=== PATIENT | male | born 1960 | race Caucasian/White ===

== ENCOUNTER 2019-05-30 09:38 | Inpatient (IN) ==
[2019-05-30] MEDS ORDERED: ASPIRIN PO ONE ×2 (10:20→10:22)
[2019-05-30] MEDS ORDERED: NITROGLYCERIN TOP ONE (10:22)
[2019-05-30 10:32] LABS: BASO# 0.04 X1000 (0.0-0.2); BASO% 0.5 % (0.0-0.8); EOS# 0.17 X1000 (0.0-0.7); EOS% 2.2 % (0.0-10.0); HEMATOCRIT 42.9 % (42.0-52.0); HEMOGLOBIN 15.1 g/dL (14.0-18.0); IMM GRAN# 0.02 X1000 (0.0-0.04); IMM GRAN% 0.3 % (0.0-0.5); LYMPH# 3.04 X1000 (1.2-3.4); LYMPH% 38.9 % (20.5-51.1); MCH 30.9 PG (27-31); MCHC 35.2 g/dL (33-37); MCV 87.9 FL (81-99); MONO# 0.63 X1000 (0.11-0.59); MONO% 8.1 % (1.7-9.3); MPV 9.7 FL (7.4-10.4); NEUT# 3.92 X1000 (1.4-6.5); PLT 263 X1000 (130-400); RBC 4.88 XMIL (4.7-6.1); WBC 7.82 X1000 (4.8-10.8)
--- NOTE | 2019-05-30 10:42 | PROVIDER DOCUMENTATION ---
This chart was entered by Nyla Chaeny Scribe, acting as scribe for Jose Hampton MD. HPI-Chest Pain - General Chief Complaint: Chest Pain Stated Complaint: CP,BACK PAIN,SWEATING Time Seen by Provider: 05/30/19 10:08 Source: patient, family, old records Allergies/Adverse Reactions: Patient Allergies Allergy/AdvReac Type Severity Reaction Status Date / Time No Known Allergies Allergy Verified 05/30/19 03:07 Home Medications: Home Medication List Medication Instructions Recorded Confirmed Last Taken Type ATORVAstatin [Lipitor] 20 mg PO QHS 05/30/19 05/30/19 Unknown History Ketorolac [Toradol] 10 mg PO Q6H PRN PRN #20 tab 05/30/19 05/30/19 Unknown Rx Orphenadrine [Norflex] 100 mg PO BID PRN #20 tab 05/30/19 05/30/19 Unknown Rx Valsartan [Diovan] 160 mg PO QAM 05/30/19 05/30/19 Unknown History - History of Present Illness-CP Nature of Presenting Problem: 59 y/o male presents to ED with L sided chest pain that radiates to back, diaphoresis, and SOB onset this morning. Pt reports he was seen last night for same, but his pain was worse this morning. Pt states he had a stress test on 05/28/19. Pt reports his pain is better now, but was unbearable this morning. Pt states he has had similar, less intense episodes of chest pain over the past 2 weeks. Pt is alert and oriented. Location: reports: other (L sided) Chest Pain Radiation: reports: back Quality of Pain: reports: pressure, sharp Severity in ED: severe Onset/Duration: this morning Timing: still present, improving Context/Activities at Onset: reports: none Modifying Factors: improves with: nothing Associated Symptoms: reports: diaphoresis, shortness of breath Nitro Today/Relief: no nitro taken today Aspirin Treatment Today: 81 mg x 1, provided at home Prior Chest Pain/Cardiac Workup: reports: stress test Similar Symptoms Previously?: Yes Recently Seen Here or By Another Healthcare Provider: Yes Review of Systems - Adult - REVIEW OF SYSTEMS - ADULT Constitutional: denies: chills, fever Eyes: reports: no symptoms reported Ears, Nose, Mouth & Throat: reports: no symptoms reported Cardiovascular: reports: chest pain. denies: palpitations Respiratory: reports: shortness of breath. denies: cough Gastrointestinal: denies: abdominal pain, diarrhea, nausea, vomiting Genitourinary: reports: no symptoms reported Musculoskeletal: denies: back pain, joint pain Integumentary: reports: other (diaphoresis). denies: hives Neurological: denies: dizziness/vertigo, seizure Psychiatric: reports: no symptoms reported Endocrine: reports: no symptoms reported Hematologic/Lymphatic: reports: no symptoms reported Allergic/Immunologic: reports: no symptoms reported All Other Systems: Reviewed and Negative Past History - Adult - PAST MEDICAL HISTORY-ADULT Review of Records: reports: Old Records Reviewed, Nursing Assessment Review, Medications Reviewed Major Childhood Illnesses: reports: denies history Cardiovascular: reports: HTN, hyperlipidemia - PRIOR SURGERIES/PROCEDURES Surgical/Procedure History: reports: orthopedic (extremity) (knee, arm) - IMMUNIZATION STATUS Childhood Immunizations: See Nurse Assessment Flu Vaccine: See Nurse Assessment - FAMILY HISTORY Family History: CAD over 55 yo, CAD under 55yo, other ([place]) - SOCIAL HISTORY Smoking: non-smoker Substance Use: none/never Alcohol Use Frequency: never Living Situation: family Physical Exam-General - PHYSICAL EXAM-ADULT Initial Vital Signs Reviewed: Yes - CONSTITUTIONAL General Appearance: appears well, alert, no apparent distress - EYES Eyes: PERRL/EOMI, pink conjunctivae - HEAD, EARS, NOSE, MOUTH & THROAT HENMT: normocephalic/atraumatic, moist mucous membranes, normal ENT inspection - NECK Neck: non-tender, full range of motion - RESPIRATORY Respiratory: chest non-tender, lungs clear, normal breath sounds - CARDIOVASCULAR Cardiovascular: normal peripheral pulses, regular rate, rhythm - GASTROINTESTINAL (ABDOMEN) Abdominal Exam: normal bowel sounds, non tender, soft - MUSCULOSKELETAL Back Exam: normal inspection, no CVA tenderness, no vertebral tenderness Extremity: normal range of motion, non-tender, normal gait - SKIN Integumentary: normal color, warm/dry - NEUROLOGIC Neurologic: grossly normal - PSYCHIATRIC Psych/Mental Status: normal mood/affect, normal thought content, normal thought process, oriented x 3 - HEART Score HEART Score: History: Moderately Suspicious HEART Score: ECG: Normal HEART Score: Age: 45-65 Years HEART Score: Risk Factors for Atherosclerotic Disease: > or = 3 Risk Factors or History of Atherosclerotic Disease HEART Score: Troponin: < or = Normal Limit Total HEART Score:: 4 Progress - PLAN OF CARE/RESULTS Progress/Plan/Lab Results: Vital Signs - 8 hr 05/30/19 10:08 Pulse Rate 40 L Respiratory Rate 18 Blood Pressure 187/84 O2 Sat by Pulse Oximetry 99 Laboratory Results - last 24 hr 05/30/19 05/30/19 05/30/19 10:02 10:02 10:02 WBC 7.82 RBC 4.88 Hgb 15.1 Hct 42.9 MCV 87.9 MCH 30.9 MCHC 35.2 RDW Std Deviation 13.0 Plt Count 263 MPV 9.7 Immature Gran % (Auto) 0.3 Neut % (Auto) 50.0 Lymph % (Auto) 38.9 Cannon % (Auto) 8.1 Eos % (Auto) 2.2 Baso % (Auto) 0.5 Immature Gran # (Auto) 0.02 Neut # (Auto) 3.92 Lymph # (Auto) 3.04 Cannon # (Auto) 0.63 H Eos # (Auto) 0.17 Baso # (Auto) 0.04 PT INR PTT (Actin FS) Sodium 139 Potassium 4.7 Chloride 106 Carbon Dioxide 21 L Anion Gap 12 BUN 22 Creatinine 1.2 Estimated GFR/1.73 m2 > 60 BUN/Creatinine Ratio 18 Glucose 123 H Calculated Osmolality 282 Calcium 8.7 L Total Bilirubin 0.40 AST 19 ALT 21 Alkaline Phosphatase 55 Creatine Kinase 234 H Creatine Kinase Index 1.9 CK-MB (CK-2) 4.49 Troponin T Vxg-D-[id number] Pept 52 Total Protein 6.8 Albumin 4.7 Globulin 2.1 Albumin/Globulin Ratio 2.2 05/30/19 05/30/19 10:02 10:02 WBC RBC Hgb Hct MCV MCH MCHC RDW Std Deviation Plt Count MPV Immature Gran % (Auto) Neut % (Auto) Lymph % (Auto) Cannon % (Auto) Eos % (Auto) Baso % (Auto) Immature Gran # (Auto) Neut # (Auto) Lymph # (Auto) Cannon # (Auto) Eos # (Auto) Baso # (Auto) PT 13.0 INR 0.98 PTT (Actin FS) 24.5 Sodium Potassium Chloride Carbon Dioxide Anion Gap BUN Creatinine Estimated GFR/1.73 m2 BUN/Creatinine Ratio Glucose Calculated Osmolality Calcium Total Bilirubin AST ALT Alkaline Phosphatase Creatine Kinase Creatine Kinase Index CK-MB (CK-2) Troponin T < 0.010 Erz-M-Xwzemjoyzcw Pept Total Protein Albumin Globulin Albumin/Globulin Ratio Orders Category Date Time Status Cardiac Monitoring DIRECTED Care 05/30/19 10:21 Active Oxygen Therapy- ED Nursing DIRECTED Care 05/30/19 10:21 Active Saline Loc NOW Care 05/30/19 10:21 Active CBC WITH ELECTRONIC DIFF [HEME] Stat Lab 05/30/19 10:02 Completed CK PROFILE [SP CHEM] Stat Lab 05/30/19 10:02 Completed COMPREHENSIVE METABOLIC PANEL [CHEM] Stat Lab 05/30/19 10:02 Completed PRO B-NATRIURETIC PEPTIDE Stat Lab 05/30/19 10:02 Completed PROTIME WITH INR [COAG] Stat Lab 05/30/19 10:02 Completed PTT [COAG] Stat Lab 05/30/19 10:02 Completed TROPONIN T Stat Lab 05/30/19 10:02 Completed Aspirin Med 05/30/19 10:22 Discontinued 243 mg PO NOW ONE Aspirin Med 05/30/19 10:20 Discontinued 325 mg PO NOW ONE Nitroglycerin Med 05/30/19 10:22 Discontinued 1 inch TOP NOW ONE CP/SOB/Palp >45 yrs of Age Stat Oth 05/30/19 10:20 Ordered EKG [EKG] Stat Ther 05/30/19 10:21 Ordered Result Diagrams: 05/30/19 10:02 05/30/19 10:02 - EKG 1 Time of EKG reading by physician:: 09:57 EKG Read and Signed by:: Jose Hampton EKG Interpretation (*Must complete 3 of following elements*): Abnormal Rate: 40 Rhythm: Maked sinus reji [place]: normal QRS: normal [place] Interval: normal ST Wave: normal - CONSULTS/PCP/HOSPITALIST Notification #1 *Consult/PCP/Hospitalist*: Dr. Franco Time Discussed: 12:59 Reason/Comments: CP Consult Disposition: Admit Departure - Departure Date of Disposition Decision: 05/30/19 Time of Disposition Decision: 13:03 DIAGNOSIS: Chest pain Qualifiers: Chest pain type: unspecified Qualified Code(s): R07.9 - Chest pain, unspecified Disposition: ADMITTED INPATIENT 09 Certified Medical Emergency: Emergent Condition: Stable Referrals and Follow-Ups: Ferdinand Spring MD [Primary Care Provider] - - Critical Care Note This patient required my direct & personal management of CC.: No Attestation - Physician/ DASHA Attestation Patient care was provided by Advanced Practice Provider:: No The physician spent face to face time with patient:: Yes Advanced Practice Provider documentation review:: Supervising physician onsite and consulted in the evaluation and care of this patient. The physician did have a face to face encounter with the patient. This chart was documented by the indicated scribe, (Nyla Chaney, Brandon) and accurately reflects the services I performed and decisions made by me, Jose Hampton MD, as attested by the provider's signature.
[2019-05-30 10:52] LABS: AGAP 12; ALB/GLOB RATIO 2.2; ALBUMIN 4.7 g/dL (3.5-5.0); ALKALINE PHOSPHATASE 55 U/L (32-122); BUN 22 mg/dL (8-22); CALCIUM 8.7 mg/dL (8.8-10.2); CHLORIDE 106 mmol/L (98-107); COSMO 282; CREATININE 1.2 mg/dL (0.7-1.2); ESTIMATED GFR > 60; GLUCOSE 123 mg/dL (70-104); GOT 19 U/L (10-34); GPT 21 U/L (10-44); INR 0.98; POTASSIUM 4.7 mmol/L (3.5-5.1); SODIUM 139 mmol/L (136-145); TCO2 21 mmol/L (25-35); TOTAL PROTEIN 6.8 g/dL (6.3-8.3)
[2019-05-30 10:53] LABS: PTT 24.5 Seconds (22.3-41.8)
[2019-05-30 10:55] LABS: CK PROFILE 234 U/L (24-204)
[2019-05-30 11:12] LABS: CK INDEX 1.9 (0.0-2.5); CK-MB 4.49 ng/mL (0.0-5.0)
[2019-05-30 13:52] LABS: UR AMPHETAMINES QUAL NONE DETECTED (NONE DETECT); UR BARBITUATES QUAL PRESUMPTIVE POSITIVE (NONE DETECT); UR BENZODIAZEPIN QUAL NONE DETECTED (NONE DETECT); UR CANNABINOIDS QUAL NONE DETECTED (NONE DETECT); UR COCAINE QUAL NONE DETECTED (NONE DETECT); UR METHADONE QUAL NONE DETECTED (NONE DETECT); UR OPIATES QUAL NONE DETECTED (NONE DETECT); UR OXYCODONE QUAL NONE DETECTED (NONE DETECT); UR PCP QUAL NONE DETECTED (NONE DETECT)
[2019-05-30] MEDS ORDERED: MORPHINE IV PRN (14:18)
[2019-05-30] MEDS ORDERED: ZOFRAN IV PRN (14:18)
--- NOTE | 2019-05-30 14:40 | ED EKG INTERP ---
This chart was entered by Nyla Chaney Scribe, acting as scribe for Jose Hampton MD. EKG Interpretation - EKG Time of EKG reading by physician:: 14:20 EKG Read and Signed by:: Jose Hampton EKG Interpretation (*Must complete 3 of following elements*): Normal Rate: 48 Rhythm: Sinus reji [place]: normal QRS: normal [place] Interval: normal ST Wave: normal Attestation - Physician/ DASHA Attestation Patient care was provided by Advanced Practice Provider:: No The physician spent face to face time with patient:: Yes Advanced Practice Provider documentation review:: Supervising physician onsite and consulted in the evaluation and care of this patient. The physician did have a face to face encounter with the patient. This chart was documented by the indicated scribe, (Nyla Chaney Scribe) and accurately reflects the services I performed and decisions made by me, Jose Hampton MD, as attested by the provider's signature.
[2019-05-30 14:41] LABS: HEMOGLOBIN A1C 5.4 % (4.8-6.0)
[2019-05-30 15:00] LABS: FREE T4 1.04 ng/dL (0.93-1.70); TSH 1.36 uIUmL (0.27-4.20)
[2019-05-30] MEDS: MORPHINE IV PRN ×2 (15:52→23:43)
--- NOTE | 2019-05-30 17:26 | ECHO REPORT ---
ORDER DATE: 05/30/2019 ECHOCARDIOGRAPHIC MEASUREMENTS: 1. Interventricular septum 0.7, left ventricular posterior wall 0.7, diastolic diameter 5.6, left atrium 3.5, aorta 3.0. 2. Aortic valve leaflets are trileaflet. 3. Pulmonic valve was normal. 4. Mitral valve was normal. 5. Tricuspid valve was normal. 6. There is mild tricuspid regurgitation. Peak velocity across the aortic valve less than 2 m/sec. There is no aortic stenosis or regurgitation. There is mild mitral regurgitation. Normal left ventricular cavity size. Estimated ejection fraction of 60%. 7. There is no pericardial effusion or obvious intracardiac mass or thrombus seen. cc: MD Марина Kelsey CRNP
[2019-05-30] MEDS ORDERED: LOPRESSOR PO ONE (17:30)
--- NOTE | 2019-05-30 17:38 | HISTORY AND PHYSICAL ---
CHIEF COMPLAINT: Recurrent chest pain. HISTORY OF PRESENT ILLNESS: Mr. Flynn is 59-year-old man with a past medical history of essential hypertension, hyperlipidemia, family history of myocardial infarction and coronary artery disease in father, mother, and younger brother, who comes in with a chief complaint of recurrent chest pain for last 3 weeks' duration. The patient was doing exercise about 3 weeks ago when he heard something popping in epigastric region and had started experiencing chest pain. Since then he has had chest pain on and off. It is located in epigastric region, radiating to the back, exacerbated by his lying down, relieved by sitting up, sometimes also relieved by physical activity. With these complaints, he saw his regular doctor who had referred him to a [facility] outpatient. He underwent exercise stress test on May 28/2019 which did not detect any ST changes suggestive of myocardial infarction. He felt okay after the stress test, though he was feeling fatigued during the stress test. After going home, the next day he again started experiencing chest pain, so he was brought to the emergency room. In the emergency room, his EKG and troponins were unremarkable on the 29 of May and he was sent back. But his chest pain recurred and he again came back to the emergency room. Considering this was his 2nd emergency room visit for persistent chest pain in 24 hours, hospitalist team was consulted for further management. He was given aspirin 325 mg in the emergency room and nitroglycerin topical, which he could not tell me whether it helped him or not. At the time of my evaluation, he still has nagging chest pain radiating to the back. He denies known gallbladder disease. He denies known aortic disease. He states that he often times has acid reflux symptoms when he eats a lot. REVIEW OF SYSTEMS: Negative for headache. Negative for blurring of vision. Negative for palpitation. Positive for mild shortness of breath. Negative for nausea or vomiting. Negative for diarrhea, constipation, or abdominal pain. PAST MEDICAL HISTORY: Essential hypertension, hyperlipidemia. PAST SURGICAL HISTORY: Left knee surgery, left forearm fracture surgery. HOME MEDICATION: Valsartan 160 mg daily, atorvastatin 20 mg daily. FAMILY HISTORY: Positive for coronary artery disease in father, mother, and brother. PERSONAL HISTORY: Denies smoking. Denies alcohol. Denies recreational drug use. He is physically active and engages in meaningful physical activity and tries to follow a healthy diet. VITAL SIGNS: Temperature 98.2 degrees, pulse 61, respiratory rate 17, blood pressure 140/70, saturating 97% on room air. PHYSICAL EXAMINATION: GENERAL: Obese, not in any acute distress. HEENT: Oral cavity moist. LUNGS: Air entry bilaterally equal. No wheeze, rhonchi, or crackles. CARDIOVASCULAR: S1, S2 normal. No murmur, rub, or gallop. Bradycardic. Radialis pulses are bilaterally equal and adequate. No radial-femoral delay. ABDOMEN: Soft, nontender. EXTREMITIES: No lower extremity edema. Intact dorsalis pedis pulses. NEUROLOGIC: He is alert and oriented x3. LAB: CBC is unremarkable. BMP is also unremarkable. Urine toxicology was positive for presumptive barbiturates. MICROBIOLOGY: Unremarkable. IMAGING: EKG suggestive of sinus bradycardia. ASSESSMENT: 1. Recurrent chest pain with risk factor being age, male gender, positive family history, hypertension, and hyperlipidemia. 2. Essential hypertension. 3. Hyperlipidemia. PLAN: Considering his chest pain was in the center of the chest radiating to back and previous angiography in 2015 had minimal calcification involving aorta, I will get a CT scan of the thorax to rule out aortic dissection. He does not have EKG or blood test evidence of acute coronary syndrome, though he does have marked sinus bradycardia at the time of my evaluation. I will resume his home valsartan and atorvastatin. Keep him on nitroglycerin as needed and aspirin. I will consult cardiology for possible need for coronary angiography. Plan of care discussed with the patient and his multiple family members at bedside. All of their questions have been answered. cc: Dev Franco MD
--- NOTE | 2019-05-30 17:43 | Diag Imaging Result Doc PS360 ---
EXAM: CT ANGIOGRAM THORAX/ABD/PELVIS INDICATION: CP, r/o aortic dissection TECHNIQUE: This exam was performed using automated exposure control, adjustment of mA or kV according to patient size, and/or use of iterative reconstruction technique. Thin section axial images through the chest, abdomen, and pelvis with 3-D MIPS were obtained. COMPARISON: None. FINDINGS: CHEST: There is trace atherosclerotic calcification involving the descending thoracic aorta. There is no evidence of thoracic aortic aneurysm or dissection. No pulmonary artery filling defects are identified. The heart is borderline to mildly prominent. There is mild coronary artery calcification. There is no evidence of significant mediastinal or hilar lymphadenopathy. The lungs are grossly clear. There is no pleural fluid collection and no pneumothorax. ABDOMEN/PELVIS: There is mild atherosclerotic calcification involving the distal aorta and trace common iliac artery atherosclerotic calcification. There is no evidence of abdominal aortic aneurysm. There is no evidence of aortic dissection. The aorta remains patent throughout. There is no evidence of flow-limiting stenosis involving the iliac arteries. The celiac trunk, mesenteric arteries, and renal arteries all remain patent. There is prominence of the left renal pelvis as compared to the right. There is symmetric enhancement and no perinephric stranding. This is assumed to be chronic. The urinary bladder is unremarkable. The gallbladder, liver, spleen, pancreas, and adrenal glands are essentially unremarkable. There is no evidence of bowel wall thickening or bowel obstruction. The remainder of the GI tract is essentially unremarkable. There is mild to moderate thoracic and lumbar spondylosis. There is no evidence of acute osseous abnormality. IMPRESSION: 1.Mild aortic atherosclerotic calcification but no evidence of thoracic or abdominal aortic dissection or aneurysm. 2.Other incidental/nonacute findings detailed above. Electronically signed by Tony Tafoya 05/30/2019 5:41 PM
[2019-05-30] MEDS: 1/2 NS 1,000 ML IV SCH (17:57)
[2019-05-30] MEDS: NITROGLYCERIN TOP SCH (17:57)
[2019-05-30] MEDS: TYLENOL PO PRN (18:05)
--- NOTE | 2019-05-30 18:05 | CARDIOLOGY CONSULTATION ---
DATE: 05/30/2019 REASON FOR CONSULT: Cardiology was consulted for chest pain. HISTORY OF PRESENT ILLNESS: Mr. Flynn is a 59-year-old gentleman who comes with complaints of chest pain. He has been having sharp episodes of chest pain at rest; however, he goes to the gym and was able to exercise without any significant problems. However, he presented to the emergency room with severe left-sided chest pain radiating to the back. This happened earlier today associated with significant diaphoresis. He woke up this morning, and was short of breath as well. Last night similar episode of chest pain. He underwent a GXT on 05/28/2019 which was unremarkable. However, symptoms of chest pain were unbearable. He came to the emergency room. Electrocardiogram revealed sinus bradycardia. There was no ST-T changes to suggest ischemia. First set of cardiac enzymes were negative. Patient, given his symptomatology, underwent a CT scan to rule out dissection and PE results are pending. The patient is otherwise very active. He has a strong family history of coronary artery disease. His father had coronary artery bypass grafting at the age of 58. His younger brother at the age of 52 had stent placement. There is no history of palpitations. There is no history of syncope. REVIEW OF SYSTEM: A 14-point review of systems was done. GI System there is no history of nausea, vomiting, diarrhea. There is no history of hematemesis or melena.Central nervous system: No focal weakness to suggest a CVA or TIA. Genitourinary: There is no dysuria or hematuria. PAST MEDICAL HISTORY: 1. Hypertension. 2. Hyperlipidemia. SOCIAL HISTORY: He does not smoke. There is no history of alcohol abuse. PHYSICAL EXAMINATION: Vital Signs: Blood pressure was 150/60. Cardiovascular System: Normal jugular venous pressure. There no thyromegaly is no carotid bruit. First and second heart sounds were heard. There is no S3, S4, or gallop. Respiratory system: Normal air entry. There is no crepitations or rhonchi. Abdomen: Was soft, nontender. There was no guarding or rigidity. Bowel sounds were heard. Central nervous system: Alert and was moving all 4 extremities Examination of extremities: Revealed no pedal edema. HEENT: Atraumatic, normocephalic. Pupils were equal and reacting to light. LABORATORY EXAMINATION: WBC 7.8, hemoglobin 15.1, hematocrit 42.9, platelet count of 263,000. Sodium 139, potassium 4.7, BUN 22, creatinine 1.2. Troponin was negative. ASSESSMENT AND PLAN: Mr. Saw Flynn is a 59-year-old gentleman who has history of hypertension, hyperlipidemia, as well as a very strong family history of coronary artery disease. He has been having intermittent episodes of chest discomfort. He underwent a GXT on Friday which was unremarkable. Prior to that, he has had a coronary CT angiogram in 2014, which had minimal disease in the left anterior descending artery with coronary calcification. CT scan report of his lungs and aorta is pending. PLAN: 1. A cardiac standpoint, he will have an echocardiogram to assess cardiac and valvular function. 2. Given his intensity of pain and strong family history, we will set him up for left heart catheterization. Risks, benefits, and alternatives were explained. Patient will be set up for left heart catheterization in the morning. 3. He has bradycardia. We will avoid beta-blockers at the present time. He we will give him on Ranexa and nitroglycerin paste. 4. Hypertension. Continue with his valsartan. 5. He had a CT scan done with IVP dye. I will hydrate him with half-normal saline as well. 6. Hyperlipidemia. Continue with his atorvastatin. Thank you for the consult. We will follow hospital course. cc: Joel Harper MD
--- NOTE | 2019-05-30 18:41 | EKG Report ---
Test Performed on : 05/30/2019 2:19:21 PM Test Reason : chest pain Blood Pressure : / mmHG Vent. Rate : 048 BPM Atrial Rate : 048 BPM P-R Int : 134 ms QRS Dur : 094 ms QT Int : 428 ms P-R-T Axes : 035 -06 015 degrees QTc Int : 382 ms Sinus bradycardia. Otherwise normal ECG When compared with ECG of 30-MAY-2019 09:45, (Unconfirmed) No significant change was found Unconfirmed Result
--- NOTE | 2019-05-30 18:43 | EKG Report ---
Test Performed on : 05/30/2019 09:45:14 AM Test Reason : CP Blood Pressure : / mmHG Vent. Rate : 040 BPM Atrial Rate : 040 BPM P-R Int : 152 ms QRS Dur : 094 ms QT Int : 446 ms P-R-T Axes : 010 001 018 degrees QTc Int : 363 ms Marked sinus bradycardia. Abnormal ECG When compared with ECG of 30-MAY-2019 02:51, (Unconfirmed) No significant change was found Unconfirmed Result
[2019-05-30] MEDS: RANEXA PO SCH (20:34)
[2019-05-30] MEDS ORDERED: LIPITOR PO SCH (21:00)
[2019-05-31] MEDS: NITROGLYCERIN TOP SCH ×3 (01:28→12:40)
[2019-05-31] MEDS: NITROGLYCERIN SL PRN ×3 (01:33→01:44)
[2019-05-31] MEDS ORDERED: RANEXA PO ONE (02:01)
[2019-05-31] MEDS ORDERED: PROTONIX IV ONE (02:01)
[2019-05-31] MEDS ORDERED: SODIUM CHLORIDE 0.9% INJ ONE (02:01)
[2019-05-31] MEDS: TYLENOL PO PRN ×2 (02:12→15:21)
--- NOTE | 2019-05-31 04:51 | EKG Report ---
Test Performed on : 05/31/2019 01:48:34 AM Test Reason : chest pain Blood Pressure : / mmHG Vent. Rate : 050 BPM Atrial Rate : 050 BPM P-R Int : 152 ms QRS Dur : 100 ms QT Int : 424 ms P-R-T Axes : -08 020 034 degrees QTc Int : 386 ms Sinus bradycardia. Otherwise normal ECG When compared with ECG of 30-MAY-2019 14:19, (Unconfirmed) No significant change was found Confirmed by Gisela PERALTA, Reilly Marcelino ([id number]) on 05/31/2019 7:08:08 AM
[2019-05-31] MEDS: PRILOSEC PO SCH ×2 (05:35→06:13)
[2019-05-31 06:25] LABS: INR 1.03; PROTIME 13.6 Seconds (11.0-16.0)
[2019-05-31 06:26] LABS: PTT 26.4 Seconds (22.3-41.8)
[2019-05-31 06:43] LABS: AGAP 9; ALBUMIN 4.3 g/dL (3.5-5.0); ALKALINE PHOSPHATASE 51 U/L (32-122); BUN 15 mg/dL (8-22); CALCIUM 8.3 mg/dL (8.8-10.2); CHLORIDE 107 mmol/L (98-107); COSMO 282; CREATININE 1.1 mg/dL (0.7-1.2); ESTIMATED GFR > 60; GLUCOSE 123 mg/dL (70-104); GOT 14 U/L (10-34); GPT 17 U/L (10-44); POTASSIUM 4.3 mmol/L (3.5-5.1); SODIUM 140 mmol/L (136-145); TCO2 24 mmol/L (25-35); TOTAL BILIRUBIN 0.55 mg/dL (0.20-1.00); TOTAL PROTEIN 6.5 g/dL (6.3-8.3)
[2019-05-31 06:44] LABS: BASO# 0.02 X1000 (0.0-0.2); BASO% 0.2 % (0.0-0.8); EOS# 0.06 X1000 (0.0-0.7); EOS% 0.6 % (0.0-10.0); HEMATOCRIT 37.7 % (42.0-52.0); HEMOGLOBIN 12.8 g/dL (14.0-18.0); LYMPH# 1.64 X1000 (1.2-3.4); LYMPH% 15.3 % (20.5-51.1); MCV 91.3 FL (81-99); MONO% 7.5 % (1.7-9.3); MPV 9.9 FL (7.4-10.4); NEUT# 8.18 X1000 (1.4-6.5); NEUT% 76.4 % (42.2-75.2); PLT 215 X1000 (130-400); RBC 4.13 XMIL (4.7-6.1)
--- NOTE | 2019-05-31 07:32 | Diag Imaging Result Doc PS360 ---
EXAM: CHEST-2 VIEWS HISTORY: Chest Pain TECHNIQUE: Chest two views COMPARISON: 05/30/2019 FINDINGS: The lungs are well expanded. The heart is not enlarged. The vessels are not distended. There are no infiltrates. No pleural effusions. IMPRESSION: No acute abnormality. Electronically signed by Noah Hughes 05/31/2019 7:29 AM
--- NOTE | 2019-05-31 07:38 | EKG Report ---
Test Performed on : 05/31/2019 06:47:21 AM Test Reason : chest pain Blood Pressure : / mmHG Vent. Rate : 058 BPM Atrial Rate : 058 BPM P-R Int : 148 ms QRS Dur : 094 ms QT Int : 412 ms P-R-T Axes : -10 016 029 degrees QTc Int : 404 ms Sinus bradycardia. Otherwise normal ECG When compared with ECG of 31-MAY-2019 01:48, (Unconfirmed) No significant change was found Confirmed by Gisela PERALTA, Reilly Marcelino ([id number]) on 06/02/2019 9:35:12 PM
[2019-05-31] MEDS ORDERED: HEPARIN 1000 UNITS/NS 2,000 UNIT/1,000 ML IV.SOLN ONE (08:00)
[2019-05-31] MEDS ORDERED: NITROGLYCERIN ONE (08:07)
[2019-05-31] MEDS: 1/2 NS 1,000 ML IV SCH (08:16)
[2019-05-31] MEDS ORDERED: DEMEROL ONE (08:27)
[2019-05-31] MEDS ORDERED: CLAVE TWINSITE 32 IN 11959 ONE (08:27)
[2019-05-31] MEDS ORDERED: VERSED ONE (08:27)
[2019-05-31] MEDS ORDERED: HEPARIN 1000 UNITS/NS 1,000 UNIT/500 ML IV.SOLN ONE (08:41)
--- NOTE | 2019-05-31 08:53 | PROGRESS NOTE ---
DATE: 05/31/2019 INTERVAL HISTORY: No acute events overnight. SUBJECTIVE: He states he did have a one time episode of chest pain which lasted for a few minutes. He says most of his chest pain has been positional and it started when doing his exercise. I explained to him about different differential diagnosis of chest pain including musculoskeletal, gastrointestinal, and cardiac. I explained to him that his chest pain could be most likely musculoskeletal. However, considering high risk, cardiac etiology needs to be ruled out currently. VITAL SIGNS: Currently, temperature 98.1 degrees, pulse 50, respiratory rate 22, blood pressure 125/83, saturating 99% on room air. PHYSICAL EXAMINATION: He does not appear in any acute distress. Oral cavity is moist. Lungs: Air entry bilaterally equal. No wheeze, rhonchi, or crackles. Cardiovascular: S1, S2 normal. No murmur, rub, or gallop. Bradycardic. No chest wall tenderness. Abdomen: Soft, nontender. No lower extremity edema. He is alert and oriented x3. LABS: Essentially unremarkable CBC and normal kidney function. His troponins have been negative. MICROBIOLOGY: No positive data. IMAGING: Chest x-ray performed today did not have any acute abnormality. Electrocardiogram is showing sinus bradycardia, otherwise no significant change. ASSESSMENT AND PLAN: 1. Recurrent chest pain with risk factors of age, male gender, positive family history, hypertension, hyperlipidemia. The patient to undergo coronary angiography today. I will follow up with post angiography recommendations. The other differential diagnosis could be musculoskeletal since his chest pain is positional and started 3 weeks ago at the time of intense physical activity. I will await angiography results. Echocardiogram is pending. EKG was sinus bradycardia and troponins have been negative. 2. Essential hypertension. I will continue him on his home valsartan; continue home atorvastatin for hyperlipidemia, and I am keeping him on aspirin as well. Ranolazine has been started for suspected coronary artery disease for now. 3. Disposition. If coronary angiography is unremarkable, my plan would be to consider discharging patient later today or tomorrow and have outpatient followup with his regular doctor. Plan of care discussed with him. His questions have been answered. cc: Dev Franco MD
[2019-05-31] MEDS ORDERED: LOVENOX SUBQ SCH (09:00)
[2019-05-31] MEDS ORDERED: DIOVAN PO SCH (09:00)
[2019-05-31] MEDS ORDERED: ASPIRIN EC PO SCH (09:00)
[2019-05-31] MEDS: RANEXA PO SCH (09:34)
[2019-05-31] MEDS ORDERED: NS 1,000 ML IV SCH (10:00)
--- NOTE | 2019-05-31 10:09 | CARDIAC CATH REPORT ---
DATE: 05/31/2019 PROCEDURES: 1. Left heart catheterization. 2. Selective bilateral coronary arteriography. 3. Left ventriculography. 4. Selective opacification of right femoral artery and deployment of 6-Cuban Angio-Seal device. HISTORY: Mr. Flynn is a 59-year-old male who presented to the hospital for admission because of recurrent chest pain. He has had a previous CT of the coronaries that showed plaque in the LAD. Dr. Harper evaluated the patient in consultation and recommended a heart catheterization. Benefits, risks and complications were discussed. He understood and requested to proceed. DESCRIPTION OF PROCEDURE: The patient came into the cardiac catheterization lab in a fasting state. The right groin was prepped and draped in sterile fashion, anesthetized with lidocaine 1%. He received 1 mg of Versed and 25 mg of Demerol for sedation. Thereafter, a 6- Cuban sheath was inserted into right femoral artery by following the modified Seldinger technique. Thereafter, using a 6-Cuban 4 Nakia catheters, left and right, the left and right coronary arteries were sequentially opacified. Then 150 mcg of intracoronary nitroglycerin was given during the opacification of left coronary artery. Then using the right Nakia catheter, the aortic valve was negotiated. Left ventricular pressure was measured. Left ventriculogram was performed in the 60 degree URUGUAYAN projection and 30 degree FRENCH projection by hand injection. At the end of the procedure, all of the catheters were removed, the sheath was flushed. The right femoral artery was opacified, and then Angio-Seal device was deployed successfully. The patient tolerated the procedure well without any obvious complications. SUMMARY OF HEMODYNAMIC FINDINGS: Central aortic pressure was 123/71. Left ventricular pressure was 123/17. Post LV gram 120/14. Final central aortic pressure was 122/67. SUMMARY OF ANGIOGRAPHIC FINDINGS: 1. Left main coronary artery. This appears to be anatomically normal. It divides into LAD and circumflex. 2. Left anterior descending coronary artery. The left anterior descending coronary artery shows an ostial plaque of about 20% to 30%. It gives rise to a couple of septal branches. Thereafter, it gives rise to a diagonal branch. At the point of origin of the diagonal branch, there is a 30% to 40% plaque at the level of LAD which is calcified. The plaque also compromises the ostium of the diagonal branch which is a good size vessel by about 40% to 50%. The stenosis in the diagonal is eccentric and is best appreciated in the cranial AP projection. The LAD thereafter continues down the interventricular groove and reaches the apex of the left ventricle. Diagonal branch after the origin of it is not compromised. 3. Circumflex. The circumflex coronary artery basically branches out into 2 systems. One is a high lateral/ramus intermedius like branch which in turn gives rise to 3 distal branches. All of these branches are free of any obstruction. They are of good size. The circumflex proper continues down the AV groove and gives rise to an obtuse marginal vessel and a small AV branch. These branches are free of any obstruction. 4. Right coronary artery. The right coronary artery is a dominant system. Proximally it gives rise to the sinus jackson branch and conus branch. The right coronary artery is free of any obstruction. It is tortuous and gives rise to a posterior descending branch and posterior ventricular lateral branch which are free of obstruction. LEFT VENTRICULOGRAM: Left ventriculogram shows normal left ventricular size and normal left ventricular contractility. There is no wall motion abnormality. Ejection fraction is estimated at 60% to 65%. There is no mitral regurgitation. OPACIFICATION OF RIGHT FEMORAL ARTERY: The right femoral artery is normal. Angio-Seal device was deployed successfully. SUMMARY: This study shows: 1. Mild to moderate coronary artery disease involving the proximal LAD where there is a 30% to 40% stenosis that extends into the ostium of the first diagonal branch which in turn has a 40% to 50% ostial stenosis. The left main proper, the circumflex proper, and the right coronary artery are free of any significant atherosclerotic obstruction. 2. Excellent left ventricular systolic function. 3. Normal LVEDP. 4. No mitral regurgitation or aortic stenosis. 5. Unremarkable right femoral artery. RECOMMENDATIONS: At this time, the patient will be treated medically. We will arrange for a followup at the office. The patient may get to go home today after observation in the Step Down Unit. cc: Anmol Skinner MD MTDD
[2019-05-31 12:53] LABS: AGAP 12; BUN 13 mg/dL (8-22); CALCIUM 8.2 mg/dL (8.8-10.2); CHLORIDE 103 mmol/L (98-107); COSMO 276; ESTIMATED GFR > 60; GLUCOSE 104 mg/dL (70-104); POTASSIUM 4.4 mmol/L (3.5-5.1); SODIUM 138 mmol/L (136-145); TCO2 23 mmol/L (25-35)
[2019-05-31 14:57] VITALS: BP 130/78
--- NOTE | 2019-06-01 11:30 | DISCHARGE SUMMARY ---
ADMISSION DATE: 05/30/2019 DISCHARGE DATE: 05/31/2019 DISCHARGE DISPOSITION: Home. DISCHARGE CONDITION: Hemodynamically stable. He does not have constant chest pain though occasionally it comes and goes. He denies any shortness of breath or palpitation. He was extensively counseled about the most likely nature of his chest pain could be musculoskeletal, and that coronary angiography did not have hemodynamically significant stenosis. VITALS: At the time of discharge, temperature 98.2 degrees, pulse 44, respiratory rate 14, and blood pressure 150/90. He is saturating 100% on room air. PHYSICAL EXAMINATION: Does not appear in acute distress. Oral cavity is moist. S1, S2 normal. No murmur or gallop. CONSULTATION DURING HOSPITAL ADMISSION: [facility], Dr. Harper. LABORATORY: At the time of discharge, hemoglobin 12.8, platelet 215,000, potassium 4.4, magnesium 2, BUN 13, and creatinine 1. Troponin's is less than 0.010 4 times. No positive microbiological data. IMAGING: Echocardiogram had suggested left ventricular ejection fraction of 60%. Mild mitral regurgitation. Normal left ventricular cavity size. No pericardial effusion or any intracardiac mass or thrombus. Chest, abdomen, and pelvis CT angiography performed to rule out aortic dissection and suggested mild aortic atherosclerotic calcification without evidence of thoracic or abdominal aortic dissection or aneurysm. Chest x-ray did not have any acute abnormalities. Electrocardiogram on admission had sinus bradycardia. Cardiac catheterization had suggested mild to moderate coronary artery disease involving proximal LAD with 40% stenosis extending into ostium of the 1st diagonal branch which in turn had 40% ostial stenosis. Otherwise, left main, circumflex, and right coronary artery were free of atherosclerotic obstruction. Normal left ventricular end-diastolic pressure. HOSPITAL COURSE SUMMARY: Mr. Flynn is a 59 year old man with an extensive past medical history of essential hypertension and hyperlipidemia. Multiple family members including father, mother, and younger brother having coronary artery disease, who came in with chest pain which was ongoing since 3 weeks. The patient was doing his regular physical exercise at which point he noticed he felt something popping up in his chest and has started chest pain. His chest pain from that point onwards came on and off located in the center of the chest radiating to the back, worsening on lying down position, and relieved with physical exercise associated with mild shortness of breath without any associated gastrointestinal symptoms or association with food. His chest pain episodes kept on coming so he decided to see his regular doctor from where he saw lining marker Dr. Gilles Barrientos, and underwent exercise stress test 3 days prior to current presentation. Exercise stress test did not have any EKG evidence of ST-T abnormality. However, after finishing x-ray stress test as soon as he went home, he started experiencing chest pain and he came to the emergency room. His EKG and troponin's were unremarkable so he was sent back. However, his chest pain again came back, and he had another ER visit so at this time hospitalist team was consulted for further management. He was admitted considering his chest pain was radiating to back, and has history of hypertension. He underwent CT angiography to rule out aortic dissection, which was negative and Cardiology was consulted. His troponin's were negative. EKG had sinus tachycardia, and coronary angiography detected about 40% stenosis of LAD and diagonal, which was thought to be hemodynamically not significant. The patient's chest pain episode was thought to be related to musculoskeletal strain. He was advised to keep a close follow up with lining marker. TIME SPENT: More than 30 minutes spent in discharging this patient. DISCHARGE MEDICATIONS: 1. Atorvastatin 20 mg at nighttime. 2. Valsartan 160 mg in the morning. 3. Aspirin 81 mg daily. cc: Dev Franco MD
--- NOTE | 2019-06-01 15:12 | DISCHARGE SUMMARY ---
ADMISSION DATE: 05/30/2019 DISCHARGE DATE: 05/31/2019 DISCHARGE DISPOSITION: Home. DISCHARGE CONDITION: The patient does not have any chest pain episode since last 12 hours. He is anxious and he was extensively counseled about probable musculoskeletal nature of his pain. DISCHARGE DIAGNOSES: 1. Recurrent chest pain. 2. Nonobstructive coronary artery disease. 3. Likely musculoskeletal chest pain. 4. Essential hypertension. 5. Essential hyperlipidemia. OTHER DIAGNOSES: Extensive family history of coronary artery disease. DISCHARGE MEDICATIONS: Atorvastatin 20 mg at nighttime, valsartan 160 mg in the morning time, aspirin 81 mg daily, cyclobenzaprine 5 mg every 12 hours for muscle cramps 10 tablets, capsaicin 0.075% cream 1 application every 12 hours as needed for chest pain. VITALS: At time of discharge, temperature 98.5 degrees, pulse 52 respiratory rate 14, blood pressure 130/78, saturating 96% on room air. PHYSICAL EXAMINATION: As mentioned in progress note, it was unremarkable. Coronary angiography detected a 40% plaque at the left anterior descending which was calcified and 40% of first diagonal without any hemodynamically significant stenosis. Echocardiogram had ejection fraction of 60% without any regional wall motion abnormality. HOSPITAL COURSE SUMMARY: Mr. Flynn is a 59-year-old man, who was admitted for recurrent chest pain of about 3 weeks duration. Apparently, his chest pain had started when he was doing intense physical activity, located in the center of the chest radiating to the back. He had seen lockstitch cup setter outpatient and his exercise stress test was unremarkable. However, his chest pain kept on coming, so he came to the emergency room twice and finally was admitted for coronary angiography. His CT angiography of chest did not detect an aortic dissection. The coronary angiography had nonobstructive coronary artery disease. It was thought that his chest pain was likely musculoskeletal in nature. He was given muscle relaxant and topical anti- inflammatory cream, and was advised to follow up with outpatient provider. At the time of discharge, his questions were extensively answered. He was extensively counseled about musculoskeletal nature of his pain. cc: Dev Franco MD
== END 2019-05-31 18:13 | disposition home or self-care (01) | DRG 287 ==
LOC: ED 09:38 → 2N 14:31
PROVIDERS: ATTEND Internal Medicine